=== PATIENT | male | born 1950 | race Caucasian/White ===

== ENCOUNTER 2016-04-11 12:14 | Outpatient (CLI) | payer OTHER | END 2016-04-11 12:15 | disposition home or self-care (01) | DX: E11.65 Type 2 diabetes mellitus with hyperglycemia (principal); Z79.899 Other long term (current) drug therapy ==

== ENCOUNTER 2016-07-22 13:39 | Outpatient (CLI) | payer OTHER | END 2016-07-22 13:40 | disposition home or self-care (01) | DX: Z11.59 Encounter for screening for other viral diseases (principal); E11.65 Type 2 diabetes mellitus with hyperglycemia; Z79.899 Other long term (current) drug therapy ==

== ENCOUNTER 2016-12-29 14:53 | Outpatient (CLI) | payer OTHER ==
[2016-12-29 15:28] LABS: BASOPHILS # (AUTO) 0.3 10^3/uL (0.0-0.1); BASOPHILS % (AUTO) 2.5 %; EOSINOPHILS # (AUTO) 0.6 10^3/uL (0.0-0.7); EOSINOPHILS % (AUTO) 5.8 %; HGB - HEMOGLOBIN 15.5 g/dL (14.0-18.0); LYMPHOCYTES % (AUTO) 30.2 %; MEAN CORPUSCULAR HEMOGLOBIN 31.6 pg (27.0-31.0); MEAN CORPUSCULAR HGB CONC 34.4 g/dL (32.0-36.0); MEAN PLATELET VOLUME 7.6 fL (7.4-11.4); MONOCYTES # (AUTO) 0.7 10^3/uL (0.0-1.0); MONOCYTES % (AUTO) 6.9 %; NEUTROPHILS # (AUTO) 5.5 10^3/uL (1.5-6.6); NEUTROPHILS % (AUTO) 54.6 %; RED BLOOD COUNT 4.89 10^6/uL (4.70-6.10); RED CELL DISTRIBUTION WIDTH 12.8 % (12.0-15.0)
[2016-12-29 15:45] LABS: ALBUMIN/GLOBULIN RATIO 1.6 (1.0-2.2); BILIRUBIN,TOTAL 0.9 mg/dL (0.2-1.0); BUN - BLOOD UREA NITROGEN 11 mg/dL (6-20); CALCIUM 9.5 mg/dL (8.5-10.3); CARBON DIOXIDE - CO2 28 mmol/L (21-32); CHLORIDE 100 mmol/L (101-111); CHOL/HDL RATIO 3.5 (<5.0); CHOLESTEROL 133 mg/dL; CREATININE 0.7 mg/dL (0.6-1.2); GFR - MDRD 114 (>89); GLUCOSE 167 mg/dL (70-100); HDL CHOLESTEROL 38 mg/dL; LDL/HDL RATIO 1.9 (<3.6); POTASSIUM 3.9 mmol/L (3.5-5.0); SODIUM 137 mmol/L (135-145); TOTAL PROTEIN 7.7 g/dL (6.7-8.2); TRIGLYCERIDES 120 mg/dL; VLDL CHOLESTEROL 24 mg/dL
[2016-12-29 17:48] LABS: HEMOGLOBIN A1C 1.32 g/dL
== END 2016-12-29 14:54 | disposition home or self-care (01) ==
LOC: LAB 14:53
PROVIDERS: ATTEND Physician Assistant Medical
DX: Z12.5 Encounter for screening for malignant neoplasm of prostate (principal); E11.9 Type 2 diabetes mellitus without complications; Z79.899 Other long term (current) drug therapy; I10 Essential (primary) hypertension; E78.2 Mixed hyperlipidemia
CPT/HCPCS: 36415; 80053; 80061; 83036; 84153; 84443; 85025

== ENCOUNTER 2017-05-13 07:18 | Day surgery (SDC) | payer OTHER ==
[2017-05-13] MEDS ORDERED: LACTATED RINGERS 1,000 ML IV ONE (07:22)
[2017-05-13] MEDS ORDERED: fentaNYL 100 MCG/2 ML VIAL IVP ONE (08:41)
[2017-05-13] MEDS ORDERED: MIDAZOLAM 2 MG/2 ML VIAL IVP ONE (08:41)
[2017-05-13 09:38] VITALS: BP 119/73
--- NOTE | 2017-05-13 09:40 | PROCEDURE REPORT ---
DATE OF SERVICE: 05/13/2017 Physician: Shahida Issa MD DATE OF PROCEDURE: 05/13/2017. PROCEDURE PERFORMED: Colonoscopy with biopsy INDICATIONS: Diarrhea. ENDOSCOPIST: Shahida Issa MD PRIMARY CARE PHYSICIAN: Shane Zamarripa MD PREMEDICATIONS: Fentanyl 200 mcg, Versed 7 mg IV titration. DESCRIPTION OF PROCEDURE: After informed consent was obtained, the patient was placed in the left lateral decubitus position. The video colonoscope was introduced in the rectum and slowly advanced to the cecum, which was identified by IC valve and cecal strap. On slow withdrawal, the mucosa was carefully examined. Preparation was only somewhat fair with some exudate present throughout the colon, but particularly in the right colon. The scope was removed. The patient tolerated the procedure well. BLOOD LOSS: None. COMPLICATIONS: None. FINDINGS 1. Apparently, small aphthous ulcerations presenting as white dots in the rectum, which could not be washed away. Biopsies taken to rule out underlying proctitis. 2. Diffuse exudate in the colon, particularly in the right side. When washed away, there was mild erythema and decrease in vascular pattern. Biopsies taken to rule out microscopic colitis. 3. A 5 mm sessile polyp in the transverse colon, jumbo biopsied and removed completely. 4. A 3 mm polyp in the descending colon, possibly consistent with inverted diverticulum. Biopsies taken to rule out adenoma. 5. Scattered mild diverticulosis, particularly in the left colon. 6. Otherwise negative colonoscopy to cecum. 7. Will be in touch with the patient regarding his biopsy results and whether he needs further followup for possible colitis [TIME: 02:07] Otherwise will need recall in 5 years TD: 05/13/2017 09:39
== END 2017-05-13 07:19 | disposition home or self-care (01) ==
LOC: SDS 07:18
PROVIDERS: ATTEND Internal Medicine Gastroenterology
PROC: 0DBL8ZX Excision of Transverse Colon, Via Natural or Artificial Opening Endoscopic, Diagnostic (ICD-10-PCS; 2017-05-13)
PROC: 0DBP8ZX Excision of Rectum, Via Natural or Artificial Opening Endoscopic, Diagnostic (ICD-10-PCS; 2017-05-13)
PROC: 0DBF8ZX Excision of Right Large Intestine, Via Natural or Artificial Opening Endoscopic, Diagnostic (ICD-10-PCS; principal; 2017-05-13 08:30)
DX: K52.89 Other specified noninfective gastroenteritis and colitis (principal); D12.3 Benign neoplasm of transverse colon; K57.30 Diverticulosis of large intestine without perforation or abscess without bleeding; E11.9 Type 2 diabetes mellitus without complications; I10 Essential (primary) hypertension; E78.00 Pure hypercholesterolemia, unspecified; Z79.82 Long term (current) use of aspirin; Z79.84 Long term (current) use of oral hypoglycemic drugs
CPT/HCPCS: 45380; J7120

== ENCOUNTER 2017-08-04 15:41 | Outpatient (CLI) | payer MEDICARE ==
[2017-08-04 16:13] LABS: BASOPHILS # (AUTO) 0.1 10^3/uL (0.0-0.1); BASOPHILS % (AUTO) 1.1 %; EOSINOPHILS # (AUTO) 0.4 10^3/uL (0.0-0.7); EOSINOPHILS % (AUTO) 4.2 %; HGB - HEMOGLOBIN 15.1 g/dL (14.0-18.0); LYMPHOCYTES # (AUTO) 3.3 10^3/uL (1.5-3.5); LYMPHOCYTES % (AUTO) 31.3 %; MEAN CORPUSCULAR HEMOGLOBIN 30.7 pg (27.0-31.0); MEAN CORPUSCULAR HGB CONC 33.7 g/dL (32.0-36.0); MEAN CORPUSCULAR VOLUME 90.9 fL (80.0-94.0); MEAN PLATELET VOLUME 7.7 fL (7.4-11.4); MONOCYTES # (AUTO) 0.8 10^3/uL (0.0-1.0); MONOCYTES % (AUTO) 7.8 %; NEUTROPHILS # (AUTO) 5.8 10^3/uL (1.5-6.6); NEUTROPHILS % (AUTO) 55.6 %; PLT - PLATELET COUNT 317 10^3/uL (130-450); RED BLOOD COUNT 4.94 10^6/uL (4.70-6.10); RED CELL DISTRIBUTION WIDTH 13.1 % (12.0-15.0); WHITE BLOOD COUNT 10.4 x10^3/uL (4.8-10.8)
[2017-08-04 16:29] LABS: ALBUMIN 4.4 g/dL (3.2-5.5); ALBUMIN/GLOBULIN RATIO 1.4 (1.0-2.2); ALKALINE PHOSPHATASE 66 IU/L (42-121); ALT ALANINE AMINOTRANSFERASE 31 IU/L (10-60); AST ASPARTATE AMINOTRANSFERASE 23 IU/L (10-42); BILIRUBIN,TOTAL 0.9 mg/dL (0.2-1.0); BUN - BLOOD UREA NITROGEN 10 mg/dL (6-20); CALCIUM 9.2 mg/dL (8.5-10.3); CARBON DIOXIDE - CO2 29 mmol/L (21-32); CHLORIDE 101 mmol/L (101-111); CHOL/HDL RATIO 3.2 (<5.0); CHOLESTEROL 125 mg/dL; CREATININE 0.7 mg/dL (0.6-1.2); GFR - MDRD 113 (>89); GLUCOSE 134 mg/dL (70-100); HDL CHOLESTEROL 39 mg/dL; LDL CHOLESTEROL,CALCULATED 58 mg/dL; LDL/HDL RATIO 1.5 (<3.6); SODIUM 137 mmol/L (135-145); TOTAL PROTEIN 7.6 g/dL (6.7-8.2); VLDL CHOLESTEROL 28 mg/dL
[2017-08-04 16:38] LABS: HB2 TOTAL 17.1 g/dL; HEMOGLOBIN A1C 1.34 g/dL; HEMOGLOBIN A1C % 9.3 % (4.6-6.2)
== END 2017-08-04 15:42 | disposition home or self-care (01) ==
LOC: LAB 15:41
PROVIDERS: ATTEND Physician Assistant Medical
DX: Z00.00 Encounter for general adult medical examination without abnormal findings (principal); E11.65 Type 2 diabetes mellitus with hyperglycemia; I10 Essential (primary) hypertension; Z12.5 Encounter for screening for malignant neoplasm of prostate; E78.2 Mixed hyperlipidemia; E11.9 Type 2 diabetes mellitus without complications; Z79.899 Other long term (current) drug therapy
CPT/HCPCS: 36415; 80053; 80061; 82043; 83036; 83721; 84153; 84443; 85025

== ENCOUNTER 2018-01-06 13:26 | Outpatient (CLI) | payer MEDICARE ==
[2018-01-06 14:35] LABS: HB2 TOTAL 16.2 g/dL; HEMOGLOBIN A1C 0.88 g/dL; HEMOGLOBIN A1C % 7.1 % (4.6-6.2)
== END 2018-01-06 13:27 | disposition home or self-care (01) ==
LOC: LAB 13:26
PROVIDERS: ATTEND Physician Assistant Medical
DX: E11.65 Type 2 diabetes mellitus with hyperglycemia (principal); Z79.899 Other long term (current) drug therapy
CPT/HCPCS: 36415; 82947; 83036

== ENCOUNTER 2018-05-05 14:29 | Outpatient (CLI) | payer MEDICARE ==
[2018-05-05 15:46] LABS: HB2 TOTAL 17.2 g/dL; HEMOGLOBIN A1C 1.14 g/dL; HEMOGLOBIN A1C % 8.2 % (4.6-6.2)
== END 2018-05-05 14:30 | disposition home or self-care (01) ==
LOC: LAB 14:29
PROVIDERS: ATTEND Physician Assistant Medical
DX: E11.65 Type 2 diabetes mellitus with hyperglycemia (principal); Z79.899 Other long term (current) drug therapy
CPT/HCPCS: 36415; 82947; 83036

== ENCOUNTER 2019-02-27 09:58 | Outpatient (CLI) | payer MEDICARE ==
[2019-02-27 10:37] LABS: HB2 TOTAL 15.3 g/dL; HEMOGLOBIN A1C 1.16 g/dL; HEMOGLOBIN A1C % 9.1 % (4.6-6.2)
== END 2019-02-27 09:59 | disposition home or self-care (01) ==
LOC: LAB 09:58
PROVIDERS: ATTEND Family Medicine
DX: E11.65 Type 2 diabetes mellitus with hyperglycemia (principal); Z79.4 Long term (current) use of insulin
CPT/HCPCS: 36415; 83036

== ENCOUNTER 2019-03-09 11:02 | Outpatient (CLI) | payer MEDICARE ==
--- NOTE | 2019-03-09 14:03 | XRAY Report ---
Reason: DIABETES MELLITUS,ON INSULIN,OVERWEIGHT Procedure Date: 03/09/2019 Accession Number: [id number] / [id number] Procedure: XR - Chest 2 View X-Ray CPT Code: 60759 Final Report FULL RESULT: EXAM: CHEST RADIOGRAPHY EXAM DATE: 03/09/2019 11:40 AM. CLINICAL HISTORY: DIABETES MELLITUS,ON INSULIN,OVERWEIGHT. COMPARISON: None. TECHNIQUE: 2 views. FINDINGS: Lungs/Pleura: No focal opacities evident. No pleural effusion. No pneumothorax. Shallow inspiratory effort with mild vascular congestion. Mediastinum: Borderline heart size.. Other: Slight height loss L1. IMPRESSION: No acute findings. RADIA
== END 2019-03-09 11:03 | disposition home or self-care (01) ==
LOC: DI 11:02
PROVIDERS: ATTEND Family Medicine
DX: E11.65 Type 2 diabetes mellitus with hyperglycemia (principal); Z79.4 Long term (current) use of insulin; E66.3 Overweight; I08.1 Rheumatic disorders of both mitral and tricuspid valves
CPT/HCPCS: 71046; 93306

== ENCOUNTER 2019-04-29 11:51 | Outpatient (CLI) | payer MEDICARE ==
[2019-04-29 12:37] LABS: ALBUMIN 4.7 g/dL (3.2-5.5); ALBUMIN/GLOBULIN RATIO 1.5 (1.0-2.2); ALKALINE PHOSPHATASE 65 IU/L (42-121); ALT ALANINE AMINOTRANSFERASE 35 IU/L (10-60); AST ASPARTATE AMINOTRANSFERASE 25 IU/L (10-42); BILIRUBIN,TOTAL 1.3 mg/dL (0.2-1.0); BUN - BLOOD UREA NITROGEN 15 mg/dL (6-20); CALCIUM 9.3 mg/dL (8.5-10.3); CARBON DIOXIDE - CO2 27 mmol/L (21-32); CHLORIDE 98 mmol/L (101-111); CHOL/HDL RATIO 3.2 (<5.0); CHOLESTEROL 138 mg/dL; CREATININE 0.7 mg/dL (0.6-1.2); GFR - MDRD 113 (>89); GLUCOSE 221 mg/dL (70-100); HDL CHOLESTEROL 43 mg/dL; LDL CHOLESTEROL,CALCULATED 64 mg/dL; LDL/HDL RATIO 1.5 (<3.6); SODIUM 137 mmol/L (135-145); TOTAL PROTEIN 7.8 g/dL (6.7-8.2); VLDL CHOLESTEROL 31 mg/dL
[2019-04-29 12:38] LABS: BASOPHILS # (AUTO) 0.1 10^3/uL (0.0-0.1); BASOPHILS % (AUTO) 0.8 %; EOSINOPHILS # (AUTO) 0.7 10^3/uL (0.0-0.7); EOSINOPHILS % (AUTO) 6.3 %; HGB - HEMOGLOBIN 15.6 g/dL (14.0-18.0); LYMPHOCYTES # (AUTO) 3.1 10^3/uL (1.5-3.5); LYMPHOCYTES % (AUTO) 28.3 %; MEAN CORPUSCULAR HEMOGLOBIN 30.5 pg (27.0-31.0); MEAN CORPUSCULAR HGB CONC 33.9 g/dL (32.0-36.0); MEAN CORPUSCULAR VOLUME 89.8 fL (80.0-94.0); MEAN PLATELET VOLUME 9.8 fL (7.4-11.4); MONOCYTES # (AUTO) 0.9 10^3/uL (0.0-1.0); MONOCYTES % (AUTO) 8.5 %; NEUTROPHILS # (AUTO) 6.2 10^3/uL (1.5-6.6); NEUTROPHILS % (AUTO) 55.7 %; PLT - PLATELET COUNT 295 10^3/uL (130-450); RED BLOOD COUNT 5.12 10^6/uL (4.70-6.10); RED CELL DISTRIBUTION WIDTH 12.4 % (12.0-15.0); WHITE BLOOD COUNT 11.1 x10^3/uL (4.8-10.8)
[2019-04-29 13:33] LABS: PSA FREE 0.2 ng/mL (0.16-2.81)
[2019-04-29 13:34] LABS: PSA TOTAL 0.32 ng/mL (0.000-2.000)
[2019-04-29 13:37] LABS: FREE T3 3.28 pg/mL (2.5-3.9)
[2019-04-29 13:39] LABS: THYROID STIMULATING HORMONE 1.7 uIU/mL (0.34-5.60)
[2019-04-29 13:41] LABS: FREE T4 (FREE THYROXINE) 0.81 ng/dL (0.58-1.64)
== END 2019-04-29 11:52 | disposition home or self-care (01) ==
LOC: LAB 11:51
PROVIDERS: ATTEND Family Medicine
DX: N40.0 Benign prostatic hyperplasia without lower urinary tract symptoms (principal); E11.65 Type 2 diabetes mellitus with hyperglycemia; Z79.4 Long term (current) use of insulin; Z68.36 Body mass index [BMI] 36.0-36.9, adult; D12.6 Benign neoplasm of colon, unspecified; E78.2 Mixed hyperlipidemia; I10 Essential (primary) hypertension; G47.33 Obstructive sleep apnea (adult) (pediatric); R06.09 Other forms of dyspnea
CPT/HCPCS: 36415; 80053; 80061; 83721; 83880; 84153; 84154; 84439; 84443; 84481; 85025

== ENCOUNTER 2019-05-27 08:00 | Outpatient (CLI) | payer MEDICARE ==
[2019-05-30 08:35] LABS: B. PARAPERTUSSIS DNA NOT DETECTED; SOURCE NASAL
== END 2019-05-27 23:59 | disposition home or self-care (01) ==
LOC: LAB.R 08:00
PROVIDERS: ATTEND Nurse Practitioner
DX: R05 Cough (principal)
CPT/HCPCS: 87798

== ENCOUNTER 2019-05-27 09:50 | Outpatient (CLI) | payer MEDICARE ==
--- NOTE | 2019-05-27 14:07 | XRAY Report ---
Reason: COUGH Procedure Date: 05/27/2019 Accession Number: [id number] / [id number] Procedure: XR - Chest 2 View X-Ray CPT Code: 19596 Final Report FULL RESULT: EXAM: CHEST RADIOGRAPHY 2 VIEWS EXAM DATE: 05/27/2019. CLINICAL HISTORY: Cough. COMPARISON: PA and lateral chest done 03/09/2019. TECHNIQUE: PA and lateral views. FINDINGS: Lungs/Pleura: Normal vasculature. The lungs are clear. No pleural fluid or pneumothorax. Mediastinum: Normal cardiac and mediastinal contours. Bones: Degenerative changes of the spine. IMPRESSION: Normal examination. No change from 03/09/2019. RADIA
== END 2019-05-27 09:51 | disposition home or self-care (01) ==
LOC: DI 09:50
PROVIDERS: ATTEND Nurse Practitioner
DX: R05 Cough (principal)
CPT/HCPCS: 71046

== ENCOUNTER 2019-06-03 08:00 | Outpatient (CLI) | payer MEDICARE | END 2019-06-03 23:59 | disposition home or self-care (01) | LOC: LAB.R 08:00 | PROVIDERS: ATTEND Nurse Practitioner | DX: J06.9 Acute upper respiratory infection, unspecified (principal) | CPT/HCPCS: 81599; U0002 ==

== ENCOUNTER 2019-11-14 15:16 | Outpatient (CLI) | payer MEDICARE ==
[2019-11-14 15:45] LABS: CALCIUM 9.4 mg/dL (8.5-10.3); CREATININE 0.8 mg/dL (0.6-1.2)
== END 2019-11-14 15:17 | disposition home or self-care (01) ==
LOC: LAB 15:16
PROVIDERS: ATTEND Family Medicine
DX: E11.9 Type 2 diabetes mellitus without complications (principal); Z79.4 Long term (current) use of insulin; I10 Essential (primary) hypertension; E78.2 Mixed hyperlipidemia; E66.3 Overweight
CPT/HCPCS: 36415; 80048; 83036

== ENCOUNTER 2020-06-09 11:59 | Outpatient (CLI) | payer MEDICARE ==
[2020-06-09 12:25] LABS: CALCIUM 9.5 mg/dL (8.5-10.3); CREATININE 0.7 mg/dL (0.6-1.2); POTASSIUM 3.7 mmol/L (3.5-5.0)
[2020-06-09 15:32] LABS: ESTIMATED AVERAGE GLUCOSE 212 mg/dL (70-100)
== END 2020-06-09 12:00 | disposition home or self-care (01) ==
LOC: LAB 11:59
PROVIDERS: ATTEND Family Medicine
DX: I10 Essential (primary) hypertension (principal); E11.8 Type 2 diabetes mellitus with unspecified complications; Z79.4 Long term (current) use of insulin
CPT/HCPCS: 36415; 80048; 83036

== ENCOUNTER 2020-07-24 15:19 | Outpatient (CLI) | payer MEDICARE ==
--- NOTE | 2020-07-24 16:04 | XRAY Report ---
PROCEDURE: Cervical Spine 2 View INDICATIONS: SEGMENTAL AND SOMATIC DYSFUNCTION OF CERVICAL SPINE TECHNIQUE: 3 view(s) of the cervical spine were acquired. COMPARISON: None. FINDINGS: Bones: No fractures or dislocations to the C6 level. The lateral masses of C1 appear intact on the odontoid view. No suspicious bony lesions. Multilevel disc space narrowing and endplate osteophyte formation, worst at C4-C5 and C5-C6, indicating degenerative disc disease. Facet hypertrophy througho ut the mid and lower cervical spine. Soft tissues: No prevertebral soft tissue swelling. IMPRESSION: Multilevel degenerative disc and facet disease. No acute fracture. No osseous lesion. If symptoms and/or clinical suspicion for pathology continue, further assessment with repeat plain film s, or advanced imaging (e.g., CT, MRI, or bone scan) is recommended for further assessment. Reviewed by: Fabricio Szymanski MD on 07/24/2020 4:03 PM PDT Approved by: Fabricio Szymanski MD on 07/24/2020 4:03 PM PDT Station ID: [id number]
--- NOTE | 2020-07-24 16:05 | XRAY Report ---
PROCEDURE: Thoracic Spine 2 View INDICATIONS: SEGMENTAL AND SOMATIC DYSFUNCTION OF THORACIC JOSE ANTONIO TECHNIQUE: 3 views of the thoracic spine were acquired. COMPARISON: None. FINDINGS: Bones: No fractures or dislocations. No suspicious bony lesions. Visualized ribs are intact. Multil evel disc space narrowing and endplate osteophyte formation is present. Soft tissues: No paravertebral stripe thickening. IMPRESSION: Multilevel degenerative disc disease. No acute fracture. No osseous lesion. If symptoms and/or clinic al suspicion for pathology continue, further assessment with repeat plain films, or advanced imaging (e.g., CT, MRI, or bone scan) is recommended for further assessment. Reviewed by: Fabricio Szymanski MD on 07/24/2020 4:04 PM PDT Approved by: Fabricio Szymanski MD on 07/24/2020 4:04 PM PDT Station ID: [id number]
--- NOTE | 2020-07-24 16:06 | XRAY Report ---
PROCEDURE: Lumbar Spine 2 View INDICATIONS: SEGMENTAL AND SOMATIC DYSFUNCTION OF LUMBAR JOSE ANTONIO TECHNIQUE: 2 views of the lumbar spine were acquired. COMPARISON: None. FINDINGS: Bones: 5 bgp-[id number] vertebrae are present. There is mild grade 1 anterolisthesis of L4 on L5. Multilevel disc space narrowing and endplate osteophyte formation, throughout the lumbar and lower th oracic spine. Facet hypertrophy throughout the mid and lower lumbar spine. No vertebral body compress ion fractures. No suspicious bony lesions. Soft tissues: Overlying bowel gas pattern is normal. No suspicious soft tissue calcifications. IMPRESSION: Multilevel degenerative disc and facet disease. No acute fracture. No osseous lesion. If symptoms and/or clinical suspicion for pathology continue, further assessment with repeat plain film s, or advanced imaging (e.g., CT, MRI, or bone scan) is recommended for further assessment. Reviewed by: Fabricio Szymanski MD on 07/24/2020 4:04 PM PDT Approved by: Fabricio Szymanski MD on 07/24/2020 4:04 PM PDT Station ID: [id number]
== END 2020-07-24 15:20 | disposition home or self-care (01) ==
LOC: DI 15:19
DX: M47.812 Spondylosis without myelopathy or radiculopathy, cervical region (principal); M50.30 Other cervical disc degeneration, unspecified cervical region; M51.34 Other intervertebral disc degeneration, thoracic region; M47.816 Spondylosis without myelopathy or radiculopathy, lumbar region; M51.36 Other intervertebral disc degeneration, lumbar region

== ENCOUNTER 2020-09-05 07:56 | Outpatient (CLI) | payer MEDICARE ==
--- NOTE | 2020-09-05 15:11 | Ultrasound Report ---
PROCEDURE: Abdomen Limited INDICATIONS: BILIARY COLIC TECHNIQUE: Real-time scanning was performed of the abdominal and retroperitoneal organs, with image documentatio n. COMPARISON: None. FINDINGS: Liver: Liver demonstrates diffusely increased echotexture without focal intrahepatic abnormalities. Gallbladder: Gallbladder is normal in appearance without gallstones, wall thickening, pericholecystic fluid, or abnormal sonographic Cadet's sign. Biliary ducts: Intrahepatic bile ducts are non-dilated. Extrahepatic bile duct caliber measures 4 m m. Normal is 6-7 mm or less in diameter, or 10 mm or less post-cholecystectomy. Pancreas: Visualized portions of the pancreas are sonographically normal. Kidneys: Right kidney is normal in size and echotexture. Right kidney measures 12.8 cm long without hydronephrosis or nephrolithiasis. No solid masses. IMPRESSION: Diffuse hepatic steatosis. No evidence for cholelithiasis or acute cholecystitis. Reviewed by: Jaden Mazariegos MD on 09/05/2020 3:10 PM PDT Approved by: Jaden Mazariegos MD on 09/05/2020 3:10 PM PDT Station ID: [id number]
== END 2020-09-05 07:57 | disposition home or self-care (01) ==
LOC: DI 07:56
PROVIDERS: ATTEND Physician Assistant Medical
DX: K80.20 Calculus of gallbladder without cholecystitis without obstruction (principal); K76.0 Fatty (change of) liver, not elsewhere classified

== ENCOUNTER 2020-11-08 18:54 | Outpatient (CLI) | payer MEDICARE | END 2020-11-08 18:55 | disposition home or self-care (01) | LOC: COV 18:54 | PROVIDERS: ATTEND Family Medicine | DX: U07.1 COVID-19 (principal) ==

== ENCOUNTER 2020-12-08 00:41 | Emergency (ER) | payer MEDICARE ==
--- NOTE | 2020-12-08 01:30 | ED Physician Documentation ---
PD HPI ABD PAIN - Stated complaint Stated Complaint: ABD PX - Chief complaint Chief Complaint: Abd Pain - History obtained from History obtained from: Patient - History of Present Illness Timing - onset: How many hours ago (9) Timing - duration: Hours Timing - details: Abrupt onset Pain level max: 10 Pain level now: 5 Quality: Pain Location: LLQ Radiation: Left flank Improved by: Other (no ameliorating factors) Worsened by: Other (no exacerbating factors) Associated symptoms: Nausea, Vomiting Similar symptoms before: Has not had sx before Recently seen: Not recently seen - Additional information Additional information: sudden onset left flank pain 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 Pain waxes and wanes without exacerbating or ameliorating factors, sometimes associated with nausea, vomiting. Denies h/o similar pain. tried maalox, pepto bismol wit hout improvement Review of Systems Constitutional: reports: Reviewed and negative Cardiac: reports: Reviewed and negative Respiratory: reports: Reviewed and negative GI: reports: Abdominal Pain, Nausea (resolved [employer] WORKER), Vomiting (resolved) : denies: Dysuria, Frequency, Hematuria PD PAST MEDICAL HISTORY - Past Medical History Past Medical History: Yes Cardiovascular: Hypertension, High cholesterol, Murmur, Other Respiratory: Sleep apnea Endocrine/Autoimmune: Type 2 diabetes GI: Colon polyps : None HEENT: Chronic hearing loss Psych: None Musculoskeletal: None Derm: None - Past Surgical History Past Surgical History: Yes General: Colonoscopy Ortho: Arthroscopic surgery HEENT: Tonsil/Adenoidectomy - Present Medications Home Medications: Ambulatory Orders Medication Instructions Recorded Confirmed Aspirin [Aspirin EC] 81 mg PO DAILY 05/12/17 12/08/20 Atorvastatin Calcium 20 mg PO DAILY 05/12/17 12/08/20 Cholecalciferol (Vitamin D3) 2,000 unit PO DAILY 05/12/17 12/08/20 [Vitamin D] Glipizide [Glipizide ER] 5 mg PO DAILY 05/12/17 12/08/20 Losartan [Cozaar] 50 mg PO DAILY 05/12/17 12/08/20 Multivitamin [Multivitamins] 1 each PO DAILY 05/12/17 12/08/20 [place]-3/Dha/Epa/Fish Oil [Fish Oil 1 each PO DAILY 05/12/17 12/08/20 1,000 mg Softgel] Ubidecarenone [Co Q-10] 300 mg PO DAILY 05/12/17 12/08/20 metFORMIN [Glucophage] 1,000 mg PO BIDWM 05/12/17 12/08/20 Cinsulin 1 tab PO DAILY 09/16/17 12/08/20 Cranberry Fruit Extract [Cranberry] 300 mg PO DAILY 09/16/17 12/08/20 Insulin Glargine,Hum.rec.anlog 80 unit SUBQ DAILY 09/16/17 12/08/20 [Basaglar Kwikpen U-100] [place] Grass Extract/Quercetin 1 each PO DAILY 09/16/17 12/08/20 [Prostate Pq Tablet] Oxycodone HCl/Acetaminophen 1 each PO Q6HR PRN #14 tablet 12/08/20 [Oxycodone-Acetaminophn 7.5-325] Tamsulosin [Flomax] 0.4 mg PO DAILY #10 cap 12/08/20 - Allergies Allergies/Adverse Reactions: Allergies Allergy/AdvReac Type Severity Reaction Status Date / Time Sulfa (Sulfonamide Allergy Rash Verified 12/08/20 00:50 Antibiotics) - Social History Does the pt smoke?: Yes Smoking Status: Light tobacco smoker Does the pt drink ETOH?: Yes - Immunizations Immunizations are current?: Yes PD ED PE NORMAL - Vitals Vital signs reviewed: Yes - General General: Alert and oriented X 3, Well developed/nourished, Other (appears to be in mild/moderate painful distress at times) - Cardiac Cardiac: RRR, No murmur - Respiratory Respiratory: No respiratory distress, Clear bilaterally - Abdomen Abdomen: Soft, Non tender - Back Back: No CVA TTP Results - Vitals Vitals: Oxygen O2 Source Room air - Labs Labs: Microbiology 12/08/20 00:52 Urine Culture - Preliminary Urine,Clean Catch CULTURE IN PROGRESS. RESULTS TO FOLLOW. Laboratory Tests 12/08/20 12/08/20 12/08/20 00:52 01:45 01:45 WBC 18.0 H RBC 4.86 Hgb 15.2 Hct 43.8 MCV 90.1 MCH 31.3 H MCHC 34.7 RDW 12.5 Plt Count 238 MPV 9.6 Neut # (Auto) 15.9 H Lymph # (Auto) 1.1 L Walsh # (Auto) 0.8 Eos # (Auto) 0.0 Baso # (Auto) 0.1 Absolute Nucleated RBC 0.00 Nucleated RBC % 0.0 Sodium 135 Potassium 4.2 Chloride 96 L Carbon Dioxide 26 Anion Gap 13.0 BUN 16 Creatinine 1.0 Estimated GFR (MDRD) 74 L Glucose 266 H Calcium 9.5 Total Bilirubin 1.0 AST 23 ALT 26 Alkaline Phosphatase 60 Total Protein 8.0 Albumin 4.7 Globulin 3.3 Albumin/Globulin Ratio 1.4 Lipase 23 Urine Color DARK YELLOW Urine Clarity SL. CLOUDY Urine pH 6.0 Ur Specific Wayne 1.025 Urine Protein TRACE Urine Glucose (UA) 500 H Urine Ketones 40 H Urine Occult Blood LARGE H Urine Nitrite NEGATIVE Urine Bilirubin NEGATIVE Urine Urobilinogen 0.2 (NORMAL) Ur Leukocyte Esterase NEGATIVE Urine RBC 11-25 H Urine WBC 4-5 Ur Squamous Epith Cells NONE SEEN Urine Bacteria Moderate H Ur Microscopic Review INDICATED Urine Culture Comments INDICATED - Rads (name of study) CT A/P Radiology: Prelim report reviewed, See rad report PD MEDICAL DECISION MAKING - ED course Complexity details: reviewed results, re-evaluated patient, considered differential, d/w patient ED course: CT A/P demonstrates large ([id number]) left ureteral calculus with hydronephrosis. He reports excellent symptom relief with 0.5mg IV dilaudid and 30mg IV toradol. he is given 0.4 mg tamsulosin PO, prescriptions for tamsulosin as well as percocet. Results discussed with patient and he is given return precautions and advised to follow up with urology I am prescribing a short course of short-acting opioid pain medication for this patient. I have reviewed the patients MEDICATION SPECIALIST and no concerning findings were noted. I have discussed that the opioids are for short term therapy only, and will not be refilled from the ED. Departure - Departure Disposition: 01 Home, Self Care Clinical Impression: Renal colic Condition: Good Instructions: ED Stone Renal W Colic Follow-Up: Bill Rodriguez MD [Primary Care Provider] - Prescriptions: Oxycodone HCl/Acetaminophen [Oxycodone-Acetaminophn 7.5-325] 1 each PO Q6HR PRN #14 tablet PRN Reason: Pain Tamsulosin [Flomax] 0.4 mg PO DAILY #10 cap Comments: Urinate through the provided strainer; if you pass the stone, you should see it in the strainer. If you do pass the stone, save it in a simple container such as a plastic cup and contact your primary care provider or, if you have one, urologist to inquire as to whether they want to have it sent for analysis to a lab. Prescriptions for tamsulosin and percocet have been electronically transmitted to [facility] in [place]. I am prescribing a short course of narcotic pain medication for you. These are potentially dangerous and addictive medications that should be used carefully. These medications may constipate you. Take an upqt-kdx-stlbypj stool softener (docusate) twice daily with plenty of water while taking these medications. If you go 24 hours without a bowel movement, take tzsa-ezi-eqqiphm miralax, per package instructions. Do not drink or drive while taking these medications. If you received narcotic or sedating medications while in the emergency department, do not drive for 24 hours. Store this medication in a safe, secure place and out of reach of children. It is a violation of federal law to give or sell this medication to another person or to use in a manner other than prescribed. The ED will not refill narcotic prescriptions, including prescriptions lost or stolen. To dispose of unwanted medications: 1. [facility] [address] [facility] in [place] has a medication drop box. They accept prescription medications (in pill form) Thursday through Thursday 9:00 a.m. to 5:00 p.m. 2. [facility] [employer] accepts prescription medications (in pill form only) for disposal year round. Call for more information. 3. Contact the [facility] for the next [facility] sponsored prescription drug collection event. , [phone], or [phone]; Discharge Date/Time: 12/08/20 03:40
[2020-12-08] MEDS ORDERED: HYDROmorphone 1 MG/ML CARPUJECT IVP STA (01:41)
[2020-12-08] MEDS ORDERED: KETOROLAC 30 MG/ML VIAL IVP STA (01:42)
[2020-12-08 01:47] LABS: BILIRUBIN,URINE NEGATIVE (NEGATIVE); CLARITY,URINE SL. CLOUDY (CLEAR); GLUCOSE, URINE (UA) 500 mg/dL (NEGATIVE); KETONES,URINE (UA) 40 mg/dL (NEGATIVE); LEUKOCYTE ESTERASE, URINE NEGATIVE (NEGATIVE); NITRITE,URINE NEGATIVE (NEGATIVE); OCCULT BLOOD,URINE LARGE (NEGATIVE); PROTEIN,URINE TRACE mg/dL (NEGATIVE); UROBILINOGEN,URINE 0.2 (NORMAL) E.U./dL (NORMAL)
[2020-12-08 01:48] LABS: BACTERIA,URINE Moderate /HPF (None Seen); SQUAMOUS EPITHELIAL CELL,UR NONE SEEN (<= Few)
[2020-12-08 01:54] LABS: BASOPHILS # (AUTO) 0.1 10^3/uL (0.0-0.1); BASOPHILS % (AUTO) 0.4 %; EOSINOPHILS % (AUTO) 0.1 %; HCT - HEMATOCRIT 43.8 % (42.0-52.0); HGB - HEMOGLOBIN 15.2 g/dL (14.0-18.0); LYMPHOCYTES # (AUTO) 1.1 10^3/uL (1.5-3.5); LYMPHOCYTES % (AUTO) 6.3 %; MEAN CORPUSCULAR HEMOGLOBIN 31.3 pg (27.0-31.0); MEAN CORPUSCULAR HGB CONC 34.7 g/dL (32.0-36.0); MEAN CORPUSCULAR VOLUME 90.1 fL (80.0-94.0); MEAN PLATELET VOLUME 9.6 fL (7.4-11.4); MONOCYTES # (AUTO) 0.8 10^3/uL (0.0-1.0); MONOCYTES % (AUTO) 4.5 %; NEUTROPHILS # (AUTO) 15.9 10^3/uL (1.5-6.6); NEUTROPHILS % (AUTO) 88.4 %; PLT - PLATELET COUNT 238 10^3/uL (130-450); RED BLOOD COUNT 4.86 10^6/uL (4.70-6.10); RED CELL DISTRIBUTION WIDTH 12.5 % (12.0-15.0)
[2020-12-08] MEDS ORDERED: IOPAMIDOL-300 100 ML VIAL ONE (01:59)
[2020-12-08 02:03] LABS: ALBUMIN 4.7 g/dL (3.2-5.5); ALBUMIN/GLOBULIN RATIO 1.4 (1.0-2.2); CALCIUM 9.5 mg/dL (8.5-10.3); POTASSIUM 4.2 mmol/L (3.5-5.0)
[2020-12-08] MEDS ORDERED: IOPAMIDOL-300 100 ML VIAL IVP ONE (02:41)
[2020-12-08] MEDS ORDERED: TAMSULOSIN 0.4 MG CAPSULE PO STA (03:14)
[2020-12-08] MEDS ORDERED: oxyCODONE/ACET 5/325 Prepack 4 PO STA (03:14)
[2020-12-08 03:39] VITALS: BP 147/71
--- NOTE | 2020-12-08 13:35 | CT Report ---
PROCEDURE: Abdomen/Pelvis W INDICATIONS: left flank/LLQ pain CONTRAST: IV CONTRAST: Isovue 300 ml: 100 PO CONTRAST: *NO PO CONTRAST TECHNIQUE: After the administration of intravenous contrast, 5 mm thick sections acquired from the diaphragms to the symphysis. 5 mm thick coronal and sagittal reformats were acquired. For radiation dose reducti on, the following was used: automated exposure control, adjustment of mA and/or kV according to josie ent size. COMPARISON: None. FINDINGS: Image quality: Excellent. ABDOMEN: Lung bases: There is mild atelectasis at the right lung base. Heart size is normal. Coronary calcifi cations are present. Solid organs: Liver and spleen are normal in size and enhancement. Gallbladder is unremarkable. Bi liary system is non dilated. Pancreas enhances normally. No adrenal nodules. There is mild left per inephric fat stranding with moderate left hydroureteronephrosis. An obstructing calculus is seen in t he proximal third of the left ureter measuring approximately 12 x 4 mm on coronal images. The left di stal ureter is decompressed. A few small 2 to 3 mm nonobstructing calculi are seen in the superior po le of the right kidney. There is no right-sided hydronephrosis. Peritoneum and bowel: Bowel loops demonstrate normal wall thickness and caliber. A few scattered di verticula are seen in the colon without signs of acute diverticulitis. Normal appendix. No free fluid or air. Nodes and vessels: No retroperitoneal or mesenteric adenopathy by size criteria. Aorta and inferior vena cava are normal in size. Mild aortic atherosclerotic calcifications. Miscellaneous: No ventral hernias. PELVIS: Genitourinary: Bladder wall thickness is normal. Coarse calcifications are seen in the prostate. Miscellaneous: No inguinal hernias or adenopathy. Bones: No suspicious bony lesions. No vertebral body compression fractures. Mild degenerative greer ges are seen in the included spine. There is grade 1 anterolisthesis of L4 on L5 secondary to facet h ypertrophy. IMPRESSION: 1. Left proximal ureteral 12 x 4 mm calculus with moderate left hydroureteronephrosis and perinephri c fat stranding. 2. Small nonobstructing calculi are seen in the superior pole of the right kidney. 3. Mild colonic diverticulosis without signs of acute diverticulitis. Preliminary findings were discussed with the emergency department physician, Dr. Jha, on the night the study was performed, and this report is being submitted later secondary to system downtime. Reviewed by: Justin Conn MD on 12/08/2020 1:33 PM PDT Approved by: Justin Conn MD on 12/08/2020 1:33 PM PDT Station ID: [id number]
== END 2020-12-08 03:40 | disposition home or self-care (01) ==
LOC: ED 00:41
DX: N13.2 Hydronephrosis with renal and ureteral calculous obstruction (principal); F17.200 Nicotine dependence, unspecified, uncomplicated
CPT/HCPCS: 36415; 74177; 80053; 81001; 83690; 85025; 87086; 96374; 99284; A9270; J1170; Q9967; 81003

== ENCOUNTER 2020-12-09 16:52 | Emergency (ER) | payer MEDICARE ==
--- NOTE | 2020-12-09 17:10 | ED Physician Documentation ---
PD HPI ABD PAIN - Stated complaint Stated Complaint: V/N,LT LOW ABD PX, - Chief complaint Chief Complaint: Abd Pain - History obtained from History obtained from: Patient - History of Present Illness Timing - onset: How many days ago (3) Timing - duration: Days (3) Timing - details: Abrupt onset, Still present Quality: Aching, Pain Location: LLQ Radiation: Left flank Improved by: Meds (pain meds helping moderately, but causing nausea and vomiting, so unable to take further meds.) Associated symptoms: Nausea, Vomiting. No: Fever, Diarrhea, Constipation, Dysuria Similar symptoms before: Has not had sx before Recently seen: Emergency Dept (2 days ago for same, with dx kidney stone proximal ureter.) Review of Systems Constitutional: denies: Fever, Chills Nose: denies: Rhinorrhea / runny nose, Congestion Throat: denies: Sore throat Cardiac: denies: Chest pain / pressure Respiratory: denies: Cough GI: reports: Abdominal Pain Skin: denies: Rash, Lesions PD PAST MEDICAL HISTORY - Past Medical History Cardiovascular: Hypertension, High cholesterol, Murmur, Other Respiratory: Sleep apnea Endocrine/Autoimmune: Type 2 diabetes GI: Colon polyps : None HEENT: Chronic hearing loss Psych: None Musculoskeletal: None Derm: None - Past Surgical History Past Surgical History: Yes General: Colonoscopy Ortho: Arthroscopic surgery HEENT: Tonsil/Adenoidectomy - Present Medications Home Medications: Ambulatory Orders Medication Instructions Recorded Confirmed Aspirin [Aspirin EC] 81 mg PO DAILY 05/12/17 12/08/20 Atorvastatin Calcium 20 mg PO DAILY 05/12/17 12/08/20 Cholecalciferol (Vitamin D3) 2,000 unit PO DAILY 05/12/17 12/08/20 [Vitamin D] Glipizide [Glipizide ER] 5 mg PO DAILY 05/12/17 12/08/20 Losartan [Cozaar] 50 mg PO DAILY 05/12/17 12/08/20 Multivitamin [Multivitamins] 1 each PO DAILY 05/12/17 12/08/20 [place]-3/Dha/Epa/Fish Oil [Fish Oil 1 each PO DAILY 05/12/17 12/08/20 1,000 mg Softgel] Ubidecarenone [Co Q-10] 300 mg PO DAILY 05/12/17 12/08/20 metFORMIN [Glucophage] 1,000 mg PO BIDWM 05/12/17 12/08/20 Cinsulin 1 tab PO DAILY 09/16/17 12/08/20 Cranberry Fruit Extract [Cranberry] 300 mg PO DAILY 09/16/17 12/08/20 Insulin Glargine,Hum.rec.anlog 80 unit SUBQ DAILY 09/16/17 12/08/20 [Basaglar Kwikpen U-100] [place] Grass Extract/Quercetin 1 each PO DAILY 09/16/17 12/08/20 [Prostate Pq Tablet] Oxycodone HCl/Acetaminophen 1 each PO Q6HR PRN #14 tablet 12/08/20 [Oxycodone-Acetaminophn 7.5-325] Tamsulosin [Flomax] 0.4 mg PO DAILY #10 cap 12/08/20 Ondansetron Odt [Zofran] 4 mg TL Q6H PRN #15 tablet 12/09/20 - Allergies Allergies/Adverse Reactions: Allergies Allergy/AdvReac Type Severity Reaction Status Date / Time Sulfa (Sulfonamide Allergy Rash Verified 12/09/20 17:00 Antibiotics) - Social History Does the pt smoke?: Yes Smoking Status: Light tobacco smoker Does the pt drink ETOH?: Yes - Immunizations Immunizations are current?: Yes PD ED PE NORMAL - Vitals Vital signs reviewed: Yes - General General: Alert and oriented X 3, Well developed/nourished, Other (in distress of pain, appears very uncomfortable. ) - Neck Neck: Supple, no meningeal sign, No adenopathy - Cardiac Cardiac: RRR, No murmur - Respiratory Respiratory: Clear bilaterally - Abdomen Abdomen: Normal bowel sounds, Soft, Non distended, No organomegaly, Other (ten is[place] without guarding LLQ area and left flank. ) - Derm Derm: Normal color, Warm and dry - Neuro Neuro: Alert and oriented X 3, No motor deficit, Normal speech Results - Vitals Vitals: Oxygen O2 Source Room air PD MEDICAL DECISION MAKING - ED course Complexity details: reviewed old records, re-evaluated patient (improved quite a bit with combo of meds for stone.), considered differential (previous recent visit for abd pain with Dx kidney stone 6 mm width (12 mm long). Had been Rx pain meds. Pain worse this afternoon. Nausea too with the pain meds. ), d/w patient Departure - Departure Disposition: 01 Home, Self Care Clinical Impression: Renal colic, Ureterolithiasis, Left sided abdominal pain Condition: Stable Record reviewed to determine appropriate education?: Yes Instructions: ED Stone Renal W Colic Follow-Up: Artis Ulrich MD [Provider Admit Priv/Credential] - Prescriptions: Ondansetron Odt [Zofran] 4 mg TL Q6H PRN #15 tablet PRN Reason: Nausea / Vomiting Comments: Adequate hydration. Try to use some anti-inflammatory such as ibuprofen or nap roxen twice daily with food. Add Tylenol every 4-6 hours if needed for pain or the oxycodone/acetaminophen every 6 hours if needed. Use ondansetron (Zofran) about 20 minutes prior to your pain medicines to see if that helps with the nausea associated. Continue the tamsulosin. Follow-up with your primary care and subsequent referrals to urology regarding the kidney stone. Return to the ER as needed. I transmitted a prescription for the ondansetron to [facility] in [place]. Discharge Date/Time: 12/09/20 18:51
[2020-12-09] MEDS ORDERED: KETOROLAC 15 MG/ML VIAL IVP STA (17:22)
[2020-12-09] MEDS ORDERED: ONDANSETRON 4 MG/2 ML VIAL IVP STA (17:22)
[2020-12-09] MEDS ORDERED: SODIUM CHLORIDE 0.9% 1,000 ML IV STA (17:22)
[2020-12-09] MEDS ORDERED: HYDROmorphone 1 MG/ML CARPUJECT IVP STA (17:22)
[2020-12-09] MEDS ORDERED: LIDOCAINE-MPF 2% 8 ML in SODIUM CHLORIDE 0.9% 50 ML IV STA (17:24)
[2020-12-09] MEDS ORDERED: LIDOCAINE-MPF 2% 5 ML VIAL ONE (17:38)
[2020-12-09] MEDS ORDERED: ONDANSETRON ODT 4 MG Prepack 2 TL PRN (18:29)
[2020-12-09 18:52] VITALS: BP 151/83
== END 2020-12-09 18:51 | disposition home or self-care (01) ==
LOC: ED 16:52
DX: N20.1 Calculus of ureter (principal); F17.200 Nicotine dependence, unspecified, uncomplicated
CPT/HCPCS: 96374; 96375; 99283; J1170; J7040

== ENCOUNTER 2021-01-02 12:08 | Outpatient (CLI) | payer MEDICARE | END 2021-01-02 12:09 | disposition home or self-care (01) | LOC: LAB 12:08 | PROVIDERS: ATTEND Family Medicine | DX: E11.8 Type 2 diabetes mellitus with unspecified complications (principal); R35.0 Frequency of micturition; Z79.4 Long term (current) use of insulin ==

== ENCOUNTER 2021-03-11 12:47 | Outpatient (CLI) | payer MEDICARE ==
[2021-03-11 13:34] LABS: ALBUMIN 4.7 g/dL (3.2-5.5); ALBUMIN/GLOBULIN RATIO 1.4 (1.0-2.2); BILIRUBIN,TOTAL 0.8 mg/dL (0.2-1.0); CALCIUM 9.5 mg/dL (8.5-10.3); CREATININE 0.8 mg/dL (0.6-1.2); POTASSIUM 3.8 mmol/L (3.5-5.0); URIC ACID 3.1 mg/dL (2.6-7.2)
== END 2021-03-11 12:48 | disposition home or self-care (01) ==
LOC: LAB 12:47
PROVIDERS: ATTEND Urology
DX: N20.0 Calculus of kidney (principal)
CPT/HCPCS: 36415; 80053; 83970; 84550

== ENCOUNTER 2021-03-13 11:24 | Outpatient (CLI) | payer MEDICARE ==
[2021-03-13 12:11] LABS: BASOPHILS # (AUTO) 0.1 10^3/uL (0.0-0.1); BASOPHILS % (AUTO) 1.2 %; EOSINOPHILS # (AUTO) 0.8 10^3/uL (0.0-0.7); EOSINOPHILS % (AUTO) 7.2 %; HCT - HEMATOCRIT 44.1 % (42.0-52.0); HGB - HEMOGLOBIN 15.2 g/dL (14.0-18.0); LYMPHOCYTES # (AUTO) 2.6 10^3/uL (1.5-3.5); LYMPHOCYTES % (AUTO) 22.7 %; MEAN CORPUSCULAR HGB CONC 34.5 g/dL (32.0-36.0); MEAN PLATELET VOLUME 9.4 fL (7.4-11.4); MONOCYTES # (AUTO) 0.9 10^3/uL (0.0-1.0); MONOCYTES % (AUTO) 8.1 %; NEUTROPHILS % (AUTO) 60.6 %; PLT - PLATELET COUNT 293 10^3/uL (130-450); RED CELL DISTRIBUTION WIDTH 13.2 % (12.0-15.0); WHITE BLOOD COUNT 11.5 x10^3/uL (4.8-10.8)
[2021-03-13 12:23] LABS: CREATININE,URINE 113.9 mg/dL; MICROALBUM/CREATININE RATIO,UR 8.8 ug/mg (<30.0)
[2021-03-13 12:27] LABS: CHOL/HDL RATIO 3.4 (<5.0); CHOLESTEROL 162 mg/dL; HDL CHOLESTEROL 47 mg/dL; LDL CHOLESTEROL,CALCULATED 83 mg/dL; LDL/HDL RATIO 1.8 (<3.6); TRIGLYCERIDES 159 mg/dL; VLDL CHOLESTEROL 32 mg/dL
[2021-03-13 12:53] LABS: ESTIMATED AVERAGE GLUCOSE 200 mg/dL (70-100); HEMOGLOBIN A1c% 8.6 % (4.27-6.07)
== END 2021-03-13 11:25 | disposition home or self-care (01) ==
LOC: LAB 11:24
PROVIDERS: ATTEND Family Medicine
DX: E11.8 Type 2 diabetes mellitus with unspecified complications (principal); I10 Essential (primary) hypertension; Z79.4 Long term (current) use of insulin; Z20.822 Contact with and (suspected) exposure to COVID-19
CPT/HCPCS: 36415; 80061; 81599; 82043; 82570; 83036; 83721; 85025; 86769

== ENCOUNTER 2021-05-28 10:21 | Outpatient (CLI) | payer MEDICARE ==
[2021-05-28 11:11] LABS: ALBUMIN 4.8 g/dL (3.2-5.5); BILIRUBIN,DIRECT 0.1 mg/dL (0.1-0.5); BILIRUBIN,TOTAL 0.9 mg/dL (0.2-1.0)
== END 2021-05-28 10:22 | disposition home or self-care (01) ==
LOC: LAB 10:21
PROVIDERS: ATTEND Physician Assistant
DX: B35.1 Tinea unguium (principal)
CPT/HCPCS: 36415; 80076

== ENCOUNTER 2021-06-28 14:19 | Outpatient (CLI) | payer MEDICARE ==
[2021-06-28 15:01] LABS: ALBUMIN 4.5 g/dL (3.2-5.5); BILIRUBIN,DIRECT 0.1 mg/dL (0.1-0.5); BILIRUBIN,TOTAL 0.7 mg/dL (0.2-1.0); TOTAL PROTEIN 7.7 g/dL (6.7-8.2)
== END 2021-06-28 14:20 | disposition home or self-care (01) ==
LOC: LAB 14:19
PROVIDERS: ATTEND Physician Assistant
DX: B35.1 Tinea unguium (principal)
CPT/HCPCS: 36415; 80076

== ENCOUNTER 2021-12-13 12:19 | Outpatient (CLI) | payer MEDICARE ==
[2021-12-13 13:24] LABS: ESTIMATED AVERAGE GLUCOSE 177 mg/dL (70-100); HEMOGLOBIN A1c% 7.8 % (4.27-6.07)
== END 2021-12-13 12:20 | disposition home or self-care (01) ==
LOC: LAB 12:19
PROVIDERS: ATTEND Nurse Practitioner Family
DX: E11.9 Type 2 diabetes mellitus without complications (principal)
CPT/HCPCS: 36415; 83036

== ENCOUNTER 2022-06-19 06:22 | Day surgery (SDC) | payer MEDICARE ==
[2022-06-19] MEDS ORDERED: LACTATED RINGERS 1,000 ML IV ONE (06:25)
[2022-06-19] MEDS ORDERED: PROPOFOL 500 MG/50 ML 500 MG/50 ML VIAL ONE (07:18)
--- NOTE | 2022-06-19 07:22 | ANESTHESIA ---
Pre-Anesthesia VS, & Labs - Diagnosis history of colon polyps - Procedure colonoscopy Vital Signs: Temp Pulse Resp BP Pulse Ox O2 Flow Rate 36 C L 67 16 139/70 H 98 06/19/22 06:31 06/19/22 06:31 06/19/22 06:31 06/19/22 06:31 06/19/22 06:31 Height: 5 ft 7 in Weight (kg): 97 kg Body Mass Index: 33.5 BMI Classification: Obese - NPO >8 hours - Lab Results Current Lab Results: Laboratory Tests 06/19/22 07:07: POC Whole Bld Glucose 302 H Lab results reviewed: Yes Home Medications and Allergies Home Medications: Ambulatory Orders Insulin Glargine [Lantus Solostar] 40 unit SQ BID 06/19/22 Aspirin [Aspirin EC] 81 mg PO DAILY 05/12/17 Atorvastatin Calcium 20 mg PO DAILY 05/12/17 Glipizide [Glipizide ER] 5 mg PO DAILY 05/12/17 metFORMIN [Glucophage] 1,000 mg PO BID 05/12/17 Insulin Glargine [Lantus Solostar] 40 unit SQ BID 06/19/22 Allergies/Adverse Reactions: Allergies Allergy/AdvReac Type Severity Reaction Status Date / Time Sulfa (Sulfonamide Allergy Rash Verified 12/09/20 17:00 Antibiotics) Anes History & Medical History - Anesthetic History Anesthesia Complications: reports: No previous complications - Medical History Cardiovascular: reports: Hypertension, High cholesterol, Murmur (echo normal) Pulmonary: reports: Sleep apnea (does not use cpap) Gastrointestinal: reports: Colon polyps Urinary: reports: None Neuro: reports: None Musculoskeletal: reports: None Endocrine/Autoimmune: reports: Type 2 diabetes Skin: reports: None Smoking Status: Light tobacco smoker Psychosocial: reports: No issues indicated History of Cancer?: No - Surgical History General: reports: Colonoscopy Eyes Ears Nose Throat (EENT): reports: Tonsil/Adenoidectomy Orthopedic: reports: Arthroscopic surgery Results - Echo Results Echo Results: Report reviewed (2018) Exam General: Alert, Oriented x3, Cooperative, No acute distress Dental: WNL Mouth Openin Fingerbreadth Neck Mobility: Normal Mallampati classification: III Thyromental Distance: 4-6 cm Mental/Cognitive Status: Alert/Oriented X3, Normal for patient Plan Anesthesia Type: General, Total IV Consent for Procedure(s) Verified and Reviewed: Yes Code Status: Attempt Resuscitation ASA classification: 2-Mild systemic disease Is this case an emergency?: No
[2022-06-19] MEDS ORDERED: LACTATED RINGERS 700 ML IV ONE (08:12)
[2022-06-19 08:24] VITALS: BP 111/56
--- NOTE | 2022-06-19 15:39 | ANESTHESIA POST OP EVALUATION ---
Anesthesia Post Eval - Post Anesthesia Eval Vitals: Last Vital Signs Temp 36.4 C L 06/19/22 08:12 Pulse 78 06/19/22 08:23 Resp 16 06/19/22 08:23 BP 111/56 L 06/19/22 08:23 Pulse Ox 98 06/19/22 08:23 O2 Flow Rate CV Function Including HR & BP: Stable Pain Control: Satisfactory Nausea & Vomiting: Negative Mental Status: Baseline Respiratory Status: Airway Patent Hydration Status: Satisfactory Anesthesia Complications: None
== END 2022-06-19 06:23 | disposition home or self-care (01) ==
LOC: SDS 06:22
PROVIDERS: ATTEND Surgery
PROC: 0DBK8ZZ Excision of Ascending Colon, Via Natural or Artificial Opening Endoscopic (ICD-10-PCS; principal; 2022-06-19 07:30)
DX: Z12.11 Encounter for screening for malignant neoplasm of colon (principal); D12.2 Benign neoplasm of ascending colon; K57.30 Diverticulosis of large intestine without perforation or abscess without bleeding; E66.9 Obesity, unspecified; Z68.33 Body mass index [BMI] 33.0-33.9, adult; E11.9 Type 2 diabetes mellitus without complications; Z79.84 Long term (current) use of oral hypoglycemic drugs; Z79.4 Long term (current) use of insulin; G47.30 Sleep apnea, unspecified; F17.200 Nicotine dependence, unspecified, uncomplicated
CPT/HCPCS: 45380; 45385; J7120

== ENCOUNTER 2023-03-14 11:01 | Outpatient (CLI) | payer MEDICARE ==
[2023-03-14 11:22] LABS: BASOPHILS # (AUTO) 0.1 10^3/uL (0.0-0.1); BASOPHILS % (AUTO) 1.2 %; EOSINOPHILS # (AUTO) 0.8 10^3/uL (0.0-0.7); EOSINOPHILS % (AUTO) 6.5 %; HCT - HEMATOCRIT 42.7 % (42.0-52.0); HGB - HEMOGLOBIN 14.8 g/dL (14.0-18.0); LYMPHOCYTES # (AUTO) 3.1 10^3/uL (1.5-3.5); LYMPHOCYTES % (AUTO) 27.1 %; MEAN CORPUSCULAR HEMOGLOBIN 32.1 pg (27.0-31.0); MEAN CORPUSCULAR HGB CONC 34.7 g/dL (32.0-36.0); MEAN CORPUSCULAR VOLUME 92.6 fL (80.0-94.0); MEAN PLATELET VOLUME 9.3 fL (7.4-11.4); MONOCYTES # (AUTO) 1.1 10^3/uL (0.0-1.0); MONOCYTES % (AUTO) 9.4 %; NEUTROPHILS # (AUTO) 6.4 10^3/uL (1.5-6.6); NEUTROPHILS % (AUTO) 55.5 %; PLT - PLATELET COUNT 279 10^3/uL (130-450); RED BLOOD COUNT 4.61 10^6/uL (4.70-6.10); RED CELL DISTRIBUTION WIDTH 13.1 % (12.0-15.0); WHITE BLOOD COUNT 11.5 x10^3/uL (4.8-10.8)
[2023-03-14 11:34] LABS: CREATININE,URINE 109.4 mg/dL; MICROALBUM/CREATININE RATIO,UR 7.3 ug/mg (<30.0); MICROALBUMIN,URINE 0.8 mg/dL
[2023-03-14 11:36] LABS: ALBUMIN 4.5 g/dL (3.2-5.5); ALBUMIN/GLOBULIN RATIO 1.6 (1.0-2.2); ALKALINE PHOSPHATASE 71 IU/L (42-121); ALT ALANINE AMINOTRANSFERASE 26 IU/L (10-60); AST ASPARTATE AMINOTRANSFERASE 20 IU/L (10-42); BILIRUBIN,TOTAL 0.6 mg/dL (0.2-1.0); BUN - BLOOD UREA NITROGEN 19 mg/dL (6-20); CALCIUM 9.8 mg/dL (8.5-10.3); CARBON DIOXIDE - CO2 30 mmol/L (21-32); CHLORIDE 104 mmol/L (101-111); CHOL/HDL RATIO 3.3 (<5.0); CHOLESTEROL 146 mg/dL; CREATININE 0.9 mg/dL (0.6-1.3); GFR - MDRD 83 (>89); GLUCOSE 112 mg/dL (74-104); HDL CHOLESTEROL 44 mg/dL; LDL CHOLESTEROL,CALCULATED 60 mg/dL; LDL/HDL RATIO 1.4 (<3.6); POTASSIUM 4.2 mmol/L (3.5-4.5); SODIUM 140 mmol/L (135-145); TOTAL PROTEIN 7.3 g/dL (6.4-8.9); TRIGLYCERIDES 208 mg/dL (48-352); VLDL CHOLESTEROL 42 mg/dL
[2023-03-14 13:52] LABS: ESTIMATED AVERAGE GLUCOSE 249 mg/dL (70-100); HEMOGLOBIN A1c% 10.3 % (4.27-6.07)
== END 2023-03-14 11:02 | disposition home or self-care (01) ==
LOC: LAB 11:01
PROVIDERS: ATTEND Nurse Practitioner Family
DX: I10 Essential (primary) hypertension (principal); E11.9 Type 2 diabetes mellitus without complications; E78.2 Mixed hyperlipidemia
CPT/HCPCS: 36415; 80053; 80061; 82043; 82570; 83036; 83721; 85025